=== PATIENT | male | born 1980 | race Caucasian/White ===

== ENCOUNTER 2021-02-12 21:45 | Emergency (ER) | payer OTHER ==
[~2021-02-12] VITALS: Ht 182.9 cm; Wt 79.4 kg
[~2021-02-12 21:45] MED LIST: ALBU.083IS IH; ALBU90I INH; ALBU90OI INH; CEPH500 PO; CRUTCH4 USE; FAMC500 PO; HYDACE5 PO; IBUP800 PO; MOMENI
== END 2021-02-13 01:28 | disposition home or self-care (01) ==
LOC: ER 21:45
DX: S81.811A Laceration without foreign body, right lower leg, initial encounter (principal); F17.200 Nicotine dependence, unspecified, uncomplicated; Y93.89 Activity, other specified; W26.8XXA Contact with other sharp object(s), not elsewhere classified, initial encounter
CPT/HCPCS: 12002; 73560-RT; 90471; 90714; 96372; 99283; J1885

== ENCOUNTER 2022-05-25 14:32 | Emergency (ER) | payer SELFPAY ==
[~2022-05-25] VITALS: Ht 182.9 cm; Wt 81.7 kg
[2022-05-25] MEDS ORDERED: Silvadene20 GM TOP (16:03)
== END 2022-05-25 16:05 | disposition home or self-care (01) ==
LOC: ER 14:32
DX: T23.262A Burn of second degree of back of left hand, initial encounter (principal); T23.242A Burn of second degree of multiple left fingers (nail), including thumb, initial encounter; T31.0 Burns involving less than 10% of body surface; F17.200 Nicotine dependence, unspecified, uncomplicated; X08.8XXA Exposure to other specified smoke, fire and flames, initial encounter
CPT/HCPCS: A9270

== ENCOUNTER 2022-12-17 17:03 | Emergency (ER) | payer SELFPAY ==
[~2022-12-17] VITALS: Ht 182.9 cm; Wt 79.4 kg
[~2022-12-17 17:03] MED LIST changes: +Silvadene20 GM TOP
[2022-12-17 19:01] VITALS: BP 142/78
== END 2022-12-17 19:00 | disposition home or self-care (01) ==
LOC: ER 17:03
DX: M79.671 Pain in right foot (principal); L98.8 Other specified disorders of the skin and subcutaneous tissue; F17.200 Nicotine dependence, unspecified, uncomplicated
CPT/HCPCS: 73630; 99283-25

== ENCOUNTER 2024-01-02 00:42 | Emergency (ER) | payer SELFPAY ==
[~2024-01-02] VITALS: Ht 182.9 cm; Wt 79.4 kg
[2024-01-02 01:54] VITALS: BP 159/107
[2024-01-02] MEDS ORDERED: DiphenhydrAMINE HCL 25 MG Cap PO ONE (03:05)
[2024-01-02] MEDS ORDERED: PredniSONE 20 MG Tab PO ONE (03:05)
[2024-01-02] MEDS ORDERED: Prednisone20 MG PO (03:08)
== END 2024-01-02 03:16 | disposition home or self-care (01) ==
LOC: ER 00:42
DX: L23.7 Allergic contact dermatitis due to plants, except food (principal); F17.200 Nicotine dependence, unspecified, uncomplicated; Z79.899 Other long term (current) drug therapy
CPT/HCPCS: 99282; A9270; J7512